=== PATIENT | male | born 1990 | race Caucasian/White ===

== ENCOUNTER 2020-08-12 06:52 | Outpatient (NON) | payer BC, SELFPAY ==
[2020-08-13 02:00] LABS: SARS-CoV-2 RNA PCR Negative
== END 2020-08-12 06:53 ==
PROVIDERS: PCP Nurse Practitioner Adult Health; Visit Provider Nurse Practitioner Adult Health
DX: J02.9 Acute pharyngitis, unspecified (principal); Z20.828 Contact with and (suspected) exposure to other viral communicable diseases
CPT/HCPCS: 87635; C9803; U0003

== ENCOUNTER 2023-06-08 12:22 | Outpatient (CLI) | payer BC, SELFPAY ==
--- NOTE | ~2023-06-08 | XR_ITS ---
EXAMINATION: XR abdomen obstructive series DATE: 06/08/2023 09:36 INDICATION: Intermittent lower abdominal pain TECHNIQUE: Upright and supine views of the abdomen were obtained. COMPARISON: None. FINDINGS: No free intraperitoneal gas or evidence of bowel obstruction. The bowel gas pattern is norm al. There is a moderate volume of colonic stool. A left pelvic calcification likely reflects a phlebo lith. IMPRESSION: 1. Nonobstructive bowel gas pattern. Reviewed, dictated and finalized at location B.
[2023-06-08 09:12] LABS: Hemoglobin 14.6 g/dL (14.0-18.0); Mean Corpuscular Hemoglobin 29.1 pg (26-34); Mean Corpuscular Volume 85.8 fl (80-100); Mean Platelet Volume 10.9 fl (7.4-10.4); Platelet Count Result 214 k/mm3 (150-375); Red Blood Count 5.01 M/mm3 (4.6-6.20); Red Cell Distribution Width 12.4 % (11.5-14.5); White Blood Count 5.5 K/mm3 (4.5-10.0)
[2023-06-08 09:28] LABS: Alanine Aminotransferase 30 U/L (6-50); Albumin Level 4.5 g/dL (3.5-5.1); Alkaline Phosphatase 81 U/L (38-126); Anion Gap 5 mmol/L (8-16); Aspartate Amino Transferase 28 U/L (17-59); Bilirubin,Total 0.6 mg/dL (0.2-1.3); Blood Urea Nitrogen 12 mg/dL (9-20); Carbon Dioxide 29 mmol/L (22-30); Chloride 104 mmol/L (98-107); Cholesterol 192 mg/dL (0-200); Estimated Glomerular Filt Rate > 60; Glucose 102 mg/dL (65-110); HDL Direct 35 mg/dL; Potassium 4.2 mmol/L (3.4-5.0); Sodium 138 mmol/L (137-145); Triglycerides 115 mg/dL (<150)
[2023-06-08 09:39] LABS: LDL Cholesterol Direct 124 mg/dL
[2023-06-14 07:31] LABS: Immunoglobulin A 181 mg/dL (47-310); TTG IGA AB <1.0 U/mL (<15.0)
[2023-06-16 23:21] LABS: Pancreatic Elastase, Stool >500 mcg/g
== END 2023-06-08 12:23 | disposition home or self-care (01) ==
PROVIDERS: Visit Provider Family Medicine
DX: E66.9 Obesity, unspecified (principal); Z30.09 Encounter for other general counseling and advice on contraception; R10.9 Unspecified abdominal pain; R19.5 Other fecal abnormalities
CPT/HCPCS: 36415; 74019; 80053; 80061; 82653; 82784; 85027; 86003; 86364

== ENCOUNTER 2023-08-03 01:26 | Day surgery (SDC) | payer BC, SELFPAY ==
[2023-07-20 13:12] VITALS: BMI 34.0
--- NOTE | 2023-08-01 11:12 | SUR.PREOP ---
Patient called regarding upcoming procedure. Message left on patient's voicemail regarding preop instructions, appointment times, and procedure prep.
[2023-08-03 09:20] VITALS: BP 122/79; PULSE 89; RESP 18; TEMP 36.2; O2SAT 100; BMI 33.3
[2023-08-03] MEDS: LACTATED RINGERS 1,000 ML 150 ML IV CONT (09:35)
--- NOTE | 2023-08-03 10:17 | P.PNAN_ITS ---
Anes - Initial Pre Proc Eval Procedure: Operation Date: 08/03/23 10:45 Proposed Procedures p Colonoscopy - Tobias Lewis MD Date/Time: 08/03/23 10:17 Surgeon: Tobias Lewis MD Pre Op Diagnosis: abdominal pain,Other fecal abnormalities Patient Data Age: 32 Gender: M Height: 1.83 m Weight: 111.3 kg Last Vital Signs Temp 97.2 F L 08/03/23 09:20 Pulse 89 08/03/23 09:20 Resp 18 08/03/23 09:20 BP 122/79 08/03/23 09:20 Pulse Ox 100 08/03/23 09:20 O2 Del Method Room Air 08/03/23 09:20 Allergies Allergy/AdvReac Type Severity Reaction Status Date / Time Penicillins Allergy Unknown Unknown Verified 06/16/23 11:30 Home Medications Medication Instructions Recorded Confirmed Type No Home Medications 06/08/23 07/20/23 History Patient hx anesthesia problems: none Family hx anesthesia problems: none Results Review: All pre-operative results and documents have been reviewed as part of the pre- operative evaluation. [facility] Family History Family History (Updated 06/08/23 @ 07:10 by Odette Patel CMA) Father Cerebrovascular accident Mother Thyroid disorder Autoimmune disease Grandparent Malignant neoplasm of prostate Congestive heart failure Grandparent Congestive heart failure Social History Social History (Updated 06/08/23 @ 07:11 by Odette Patel CMA) Smoking status: Never smoker Second hand tobacco smoke exposure: No Alcohol intake: never Substance use: never Substance use type: does not use Lack of Food: Never True Current Housing: I Have Housing Concerned About Future Housing: No Difficulty Paying Gas/Electric Bills: No Difficulty Paying for Meds: No Currently Unemployed: No Living arrangements: with family Spiritual care concerns: No Anes - Eval Final PreProcedure Day of Procedure 08/03/23 10:17 Patient weight: obese Heart: regular rate and rhythm Lungs: clear to auscultation Neurological: alert and oriented Last oral intake: >/= 8 hours Emergent: no Anesthetic plan: proceed Results Review: All pre-operative results and documents have been reviewed as part of the pre- operative evaluation. Informed Consent: The patient's anesthetic plan and its attendant risks and benefits were discussed with the patient/family/POA. Questions were solicited and answers provided to the satisfaction of the patient/family/POA.
--- NOTE | 2023-08-03 10:19 | PM.HPGS ---
History of Present Illness History of Present Illness Consent: Risks, benefits, and alternatives have been discussed and questions answered. Patient agrees to proceed with procedure. Chief complaint: abdominal pain,Other fecal abnormalities Narrative: Sukhjinder Davidson is a 32 year old male with loose stools and abdominal cramping, no celiac, no EPI. Never had colonoscopy Review of Systems Constitutional: Constitutional: Denies headache(s) and Denies weakness Eyes: Eyes: Denies blurry vision ENT: Reports Normal hearing present, Denies headache(s) and Denies neck pain Cardiovascular: Cardiovascular: Denies chest pain and Denies dyspnea Respiratory: Respiratory: Denies dyspnea Gastrointestinal: Gastrointestinal: Reports no additional gastrointestinal complaints Genitourinary: Genitourinary: Denies dysuria Musculoskeletal: Musculoskeletal: Denies neck pain Integumentary/Breasts: Skin/Breast: Denies dry skin Neurologic: Reports Normal hearing present, Denies headache(s) and Denies weakness Psychiatric: Psychiatric: Denies anxiety Endocrine: Endocrine: Denies change in body appearance Hematologic/Lymphatic: Hematologic/Lymphatic: Denies easy bleeding Allergic/Immunologic: Allergic/Immunologic: Denies urticaria [facility] Family History Family History (Updated 06/08/23 @ 07:10 by Odette Patel CMA) Father Cerebrovascular accident Mother Thyroid disorder Autoimmune disease Grandparent Malignant neoplasm of prostate Congestive heart failure Grandparent Congestive heart failure Social History Social History (Updated 06/08/23 @ 07:11 by Odette Patel CMA) Smoking status: Never smoker Second hand tobacco smoke exposure: No Alcohol intake: never Substance use: never Substance use type: does not use Lack of Food: Never True Current Housing: I Have Housing Concerned About Future Housing: No Difficulty Paying Gas/Electric Bills: No Difficulty Paying for Meds: No Currently Unemployed: No Living arrangements: with family Spiritual care concerns: No Meds Home Medications and Allergies Home Medications Medication Instructions Recorded Confirmed Type No Home Medications 06/08/23 07/20/23 History Allergies Allergy/AdvReac Type Severity Reaction Status Date / Time Penicillins Allergy Unknown Unknown Verified 06/16/23 11:30 Vital Signs Vital Signs - 24 hr 08/03/23 09:20 Temperature 97.2 F L Pulse Rate 89 Respiratory Rate 18 Blood Pressure 122/79 Pulse Oximetry 100 Oxygen Delivery Room Air Exam Const: General: comfortable and no acute distress HENMT: Face/Nose/Sinus: Normal nares present Eyes: General: appearance normal, both eyes and all related structures Neck: Neck: no JVD Resp: Auscultation: clear to auscultation bilaterally Cardio: Rate: regular rate Rhythm: regular rhythm GI: Inspection: non-distended GI Palp: Yes Soft to palpation Skin: General skin exam: normal color Neuro: General: gait normal Speech: normal speech Extrem: General: normal to inspection Psych: Mental Status: mental status grossly normal Assessment and Plan Assessment and plan (1) Abdominal discomfort: Code(s): R10.9 - Unspecified abdominal pain Status: Acute Assessment and Plan: colonoscopy probably ibs (2) Loose stools: Code(s): R19.5 - Other fecal abnormalities Status: Acute
[2023-08-03 10:41] VITALS: BP 119/78; PULSE 65; RESP 17; O2SAT 95
[2023-08-03 10:51] VITALS: BP 116/78; PULSE 60; RESP 16; O2SAT 96
[2023-08-03 11:01] VITALS: BP 109/74; PULSE 69; RESP 17; O2SAT 96
== END 2023-08-03 11:08 | disposition home or self-care (01) ==
PROVIDERS: PCP Family Medicine; Visit Provider Internal Medicine Gastroenterology
PROC: 0DJD8ZZ Inspection of Lower Intestinal Tract, Via Natural or Artificial Opening Endoscopic (ICD-10-PCS; CPT 45378; principal; 2023-08-03 10:45)
DX: K52.832 Lymphocytic colitis (principal); K64.8 Other hemorrhoids; E66.9 Obesity, unspecified; Z68.33 Body mass index [BMI] 33.0-33.9, adult
CPT/HCPCS: 45380; 88305; J2704; J7120